=== PATIENT | male | born 1950 ===

== ENCOUNTER 2019-01-08 05:10 | Day surgery (SDC) | payer OTHER ==
[~2019-01-08 05:10] MED LIST: LOSART PO; SINGULAIR10 MG PO; ZOCOR20 MG PO
== END 2019-01-08 11:05 | disposition home or self-care (01) ==
LOC: CIR.AMB 05:10
DX: M75.122 Complete rotator cuff tear or rupture of left shoulder, not specified as traumatic (principal)